=== PATIENT | male | born 1970 | race Caucasian/White ===

== ENCOUNTER 2021-09-22 19:04 | Emergency (ER) | payer OTHER ==
[2021-09-22 19:16] VITALS: BP 131/77; PULSE 92; TEMP 98.4; BMI 31.3
[2021-09-22] MEDS ORDERED: AMOX TR/POT CLAV 875MG/125MG TABLETS (FP) PO ONE (22:18)
[2021-09-22] MEDS ORDERED: AMOX TR/POT CLAV 875MG/125MG TABLETS (FP) ONE (22:18)
== END 2021-09-22 22:22 | disposition home or self-care (01) ==
LOC: JERFT 19:04
PROC: 0HQGXZZ Repair Left Hand Skin, External Approach (ICD-10-PCS; principal; 2021-09-22)
DX: S61.211A Laceration without foreign body of left index finger without damage to nail, initial encounter (principal); S61.213A Laceration without foreign body of left middle finger without damage to nail, initial encounter; W31.2XXA Contact with powered woodworking and forming machines, initial encounter
CPT/HCPCS: 12004; 73140-TC-LT-FY; 99283-25